=== PATIENT | male | born 2000 | race Caucasian/White ===

== ENCOUNTER 2019-05-14 17:47 | Emergency (ER) | payer SELFPAY ==
[2019-05-14 17:54] VITALS: BP 135/73
[2019-05-14] MEDS ORDERED: IBUPROFEN 800 MG TABLET PO ONE (18:43)
--- NOTE | 2019-05-14 18:45 | ER Document Report ---
HPI - HPI Patient complains to provider of: sore throat Time Seen by Provider: 05/14/19 18:17 Pain Level: 3 Context: Patient is otherwise healthy 19-year-old male presents to the emergency department for sore throat. Patient states he has had a sore throat intermittently for the last month. Patient is also complaining of subjective fevers intermittently. Patient's denying any cough or congestion, denies any nausea, vomiting, diarrhea, chest pain, shortness of breath. Patient states allergies to sulfa medications. Past Medical History - General Information source: Patient - Social History Smoking Status: Unknown if Ever Smoked Family History: Reviewed & Not Pertinent Vertical Provider Document - CONSTITUTIONAL Agree With Documented VS: Yes Notes: GENERAL: Alert, interacts well. No acute distress. HEAD: Normocephalic, atraumatic. EYES: Pupils equal, round, and reactive to light. Extraocular movements intact. ENT: Oral mucosa moist, tongue midline. Nares patent, TM's intact, nonerythematous, nonbulging bilaterally. Pharynx erythematous tonsils +2 bilaterally and symmetrical, exudate noted, no palatal petechiae noted. NECK: Full range of motion. Supple. Trachea midline. No lymphadenopathy appreciated LUNGS: Clear to auscultation bilaterally, no wheezes, rales, or rhonchi. No respiratory distress. HEART: Regular rate and rhythm. No murmur ABDOMEN: Soft, non-tender. Non-distended. Bowel sounds present in all 4 quadrants. EXTREMITIES: Moves all 4 extremities spontaneously. No edema, normal radial and dorsalis pedis pulses bilaterally. No cyanosis. BACK: no cervical, thoracic, lumbar midline tenderness. No saddle anesthesia, normal distal neurovascular exam. NEUROLOGICAL: Alert and oriented x3. Normal speech. cranial nerves II through XII grossly intact. PSYCH: Normal affect, normal mood. SKIN: Warm, dry, normal turgor. No rashes or lesions noted. - INFECTION CONTROL TRAVEL OUTSIDE OF THE [place] IN LAST 30 DAYS: No Course - Re-evaluation Re-evalutation: 05/14/19 19:03 Laboratory 05/14/19 18:20 Group A Strep Rapid NEGATIVE Discussed negative results with patient at bedside. I discussed following up at [facility] or [facility] as patient is uninsured. At this time will discharge with return precautions and follow-up recom mendations. Verbal discharge instructions given a the bedside and opportunity for questions given. Medication warnings reviewed. Patient is in agreement with this plan and has verbalized understanding of return precautions and the need for primary care follow-up in the next 24-72 hours. This medical record was dictated with voice recognizing software. There may be grammatical, syntax errors that are unintended. - Vital Signs Vital signs: Temp Pulse Resp BP Pulse Ox 98.4 F 80 18 135/73 H 98 05/14/19 17:52 05/14/19 17:52 05/14/19 17:52 05/14/19 17:52 05/14/19 17:52 Discharge - Discharge Clinical Impression: Sore throat (viral) Condition: Stable Disposition: HOME, SELF-CARE Instructions: Sore Throat ([facility]) Additional Instructions: As we discussed your rapid strep test is negative for bacteria in the emergency department. This means your sore throat is caused by a viral infection. Please make sure you are staying well-hydrated, taking [id number] Tylenol Motrin for generalized pain. Please also make sure you are using salt water gargles and [id number] lozenges for generalized pain. Please follow-up at [facility] or [facility] as these are to clinics you can go to if you are uninsured. Please also return to the emergency room for any further concerns. Forms: Return to Work Referrals: [facility] [Provider Group] - Follow up as needed [facility] [Provider Group] - Follow up as needed
== END 2019-05-14 19:03 | disposition home or self-care (01) ==
LOC: ER 17:47
DX: J02.9 Acute pharyngitis, unspecified (principal); R50.9 Fever, unspecified
CPT/HCPCS: 87070; 87880; 99283